=== PATIENT | male | born 1995 | race Hispanic/Latino ===

== ENCOUNTER 2024-10-03 09:30 | Emergency (ER) | payer OTHER, SELFPAY ==
--- NOTE | 2024-10-03 10:56 | RAD REPORT ---
EXAM: Hand Right 3 View HISTORY: deformity and injury to right thumb COMPARISON: None FINDINGS: Comminuted fracture at the thumb proximal phalanx. This is at the mid diaphysis. No intra-articular e xtension. There is up to one half shaft width of radial displacement. IMPRESSION: Comminuted thumb proximal phalanx fracture. No intra-articular extension.
--- NOTE | 2024-10-03 11:22 | EDPHYS ---
Physician Documentation [facility] Name: Sahil Owusu Age: 28 yrs Sex: Male : 1995 Arrival Date: 10/03/2024 Time: 09:30 Bed 10 Private MD: ED Physician Alan Arreaga HPI: 10/03 11:17 This 28 yrs old Male presents to ER via Ambulatory with complaints of Finger rn Injury. 11:17 Onset: The symptoms/episode began/occurred 4 day(s) ago. The patient has not rn experienced similar symptoms in the past. Patient reports was roping, rope got caught on saddle and around his right thumb, rope snapped and pulled his thumb, had obvious deformity, his friend tried to "straighten it out". Patient reports still swollen and deformed so came in today for evaluation.. Historical: - Allergies: 09:46 No Known Allergies; ll1 - PMHx: 09:49 None; ll1 - PSHx: 09:49 None; ll1 - Immunization history:: Adult Immunizations up to date. - Infectious Disease History:: Denies. - Social history:: Smoking status: Reported history of juuling and/or vaping. - Family history:: not pertinent. - Hospitalizations: : No recent hospitalization is reported. ROS: 11:17 Constitutional: Negative for fever, chills, and weight loss, MS/Extremity: Positive for rn right thumb injury and deformity Neuro: Negative for weakness or numbness Exam: 11:17 Constitutional: This is a well developed, well nourished patient who is awake, alert, rn and in no acute distress. MS/ Extremity: Right thumb proximal phalanx with deformity. No open wound. Moderate ecchymosis around thumb and base of thumb. Vital Signs: 09:49 BP 135 / 94; Pulse 60; Resp 16; Temp 97.6; Pulse Ox 99% ; Weight 65.77 kg; Height 5 ft. ll1 9 in. ; Pain 0/10; 11:21 BP 132 / 88; Pulse 66; Resp 17; Pulse Ox 99% ; ll1 09:49 Body Mass Index 21.41 (65.77 kg, 175.26 cm) ll1 09:49 Pain Scale: Adult ll1 MDM: 09:37 Medical Screening Exam initiated rn 11:20 Differential diagnosis: extremity fracture. Data reviewed: vital signs, nurses notes, rn radiologic studies, plain films, and as a result, I will discharge patient. Independent interpretation of the following test(s) in the Emergency Department X-Ray: My interpretation is X-ray right hand shows obvious proximal phalanx of the thumb fracture, comminuted, per my interpretation. Counseling: I had a detailed discussion with the patient and/or guardian regarding the historical points, exam findings, and any diagnostic results supporting the discharge/admit diagnosis, radiology results, the need for outpatient follow up, to return to the emergency department if symptoms worsen or persist or if there are any questions or concerns that arise at home. Special discussion: I discussed with the patient/guardian in detail that at this point there is no indication for admission to the hospital. It is understood, however, that if the symptoms persist or worsen the patient needs to return immediately for re-evaluation. Based on the history and exam findings, there is no indication for further emergent testing or inpatient evaluation. I discussed with the patient/guardian the need to see the hand specialist for further evaluation of the symptoms. ED course: Patient with comminuted thumb fracture. Offered patient formal splint versus premade Velcro thumb spica splint, patient prefers premade Velcro thumb spica splint. Understands needs to follow-up with hand surgery or will have permanent dysfunction of the thumb or problems with the thumb in the future. Traction applied to thumb for reduction while placing in splint by myself.. 10/03 09:55 Order name: XRAY Hand RIGHT 3 View; Complete Time: 10:57 rn Administered Medications: No medications were administered Disposition Summary: 10/03/24 11:21 Discharge Ordered Notes: Location: Home rn Problem: new rn Symptoms: have improved rn Condition: Stable rn Diagnosis - Displaced fracture of proximal phalanx of right thumb rn Followup: rn - With: Private Physician - When: 2 - 3 days - Reason: Recheck today's complaints, Re-evaluation by your physician Discharge Instructions: - Discharge Summary Sheet rn - Cast or Splint Care, Adult rn - Thumb Fracture rn Forms: - Medication Reconciliation Form rn - Antibiotic contemporary or modern dancer - Prescription Opioid Use rn - Patient Portal Instructions rn - Leadership Thank You Letter rn Signatures: Dispatcher [facility] Alan Plunkett MD MD rn Lewis, Lynsay, RN RN ll1 Corrections: (The following items were deleted from the chart) 09:55 09:55 Hand Right 3 View+RAD.RAD.[email or web address] ordered. EDMS EDMS
--- NOTE | 2024-10-03 11:22 | ER ---
Nurse's Notes [facility] Name: Sahil Owusu Age: 28 yrs Sex: Male : 1995 Arrival Date: 10/03/2024 Time: 09:30 Bed 10 Private MD: Diagnosis: Displaced fracture of proximal phalanx of right thumb Presentation: 10/03 09:49 Chief complaint: Patient states: Rope pulled R hand Hardeep night. Pain, swelling, ll1 decreased ROM to R thumb since. Coronavirus screen: Client denies travel out of the [place] in the last 14 days. At this time, the client does not indicate any symptoms associated with coronavirus-19. Ebola Screen: Patient denies travel to an Ebola-affected area in the 21 days before illness onset. Initial Sepsis Screen: Does the patient meet any 2 criteria? No. Patient's initial sepsis screen is negative. Does the patient have a suspected source of infection? No. Patient's initial sepsis screen is negative. Risk Assessment: Do you want to hurt yourself or someone else? Patient reports no desire to harm self or others. Onset of symptoms was September 29, 2024. 09:49 Method Of Arrival: Ambulatory ll1 09:49 Acuity: GAYATRI 4 ll1 Triage Assessment: 09:49 General: Appears uncomfortable, Behavior is calm, cooperative, appropriate for age. ll1 Pain: Complains of pain in right hand Pain currently is 0 out of 10 on a pain scale. Musculoskeletal: Circulation, motion, and sensation intact. Capillary refill < 3 seconds, in right fingers. Range of motion: limited in R thumb Swelling present in R thumb Reports. Injury Description: Bruise rope pulled R arm. Historical: - Allergies: 09:46 No Known Allergies; ll1 - PMHx: 09:49 None; ll1 - PSHx: 09:49 None; ll1 - Immunization history:: Adult Immunizations up to date. - Infectious Disease History:: Denies. - Social history:: Smoking status: Reported history of juuling and/or vaping. - Family history:: not pertinent. - Hospitalizations: : No recent hospitalization is reported. Screenin:11 [facility] ED Fall Risk Assessment (Adult) History of falling in the last 3 months, ll1 including since admission No falls in past 3 months (0 pts) Confusion or Disorientation No (0 pts) Intoxicated or Sedated No (0 pts) Impaired Gait No (0 pts) Mobility Assist Device Used No (0 pt) Altered Elimination No (0 pt) Score/Fall Risk Level 0 - 2 = Low Risk Maintained a safe environment, Hourly rounding (assess needs \T\ fall precautionary measures) done. Abuse screen: Denies threats or abuse. Nutritional screening: No deficits noted. Tuberculosis screening: No symptoms or risk factors identified. Assessment: 11:11 Reassessment: No changes from previously documented assessment. Patient and/or family ll1 updated on plan of care and expected duration. Pain level reassessed. Patient is alert, oriented x 3, equal unlabored respirations, skin warm/dry/pink. Vital Signs: 09:49 BP 135 / 94; Pulse 60; Resp 16; Temp 97.6; Pulse Ox 99% ; Weight 65.77 kg; Height 5 ft. ll1 9 in. ; Pain 0/10; 11:21 BP 132 / 88; Pulse 66; Resp 17; Pulse Ox 99% ; ll1 09:49 Body Mass Index 21.41 (65.77 kg, 175.26 cm) ll1 09:49 Pain Scale: Adult ll1 ED Course: 09:36 Patient arrived in ED. al6 09:37 Alan Arreaga MD is Attending Physician. rn 09:46 Arm band placed on. ll1 09:51 Triage completed. ll1 10:52 XRAY Hand RIGHT 3 View In Process Unspecified. EDMS 11:11 Sugey May, RN is Primary Nurse. ll1 11:11 Patient placed in an exam room, on a stretcher. ll1 11:12 Patient has correct armband on for positive identification. Bed in low position. ll1 Provided Education on: ER procedures and process. Cardiac monitoring not applicable on this patient. 11:12 No provider procedures requiring assistance completed. Patient did not have IV access ll1 during this emergency room visit. Administered Medications: No medications were administered Medication: 11:13 VIS not applicable for this client. ll1 Outcome: 11:12 Condition: stable ll1 11:21 Discharge ordered by . rn 11:21 Discharged to home ambulatory, ll1 11:21 Discharge instructions given to patient, Instructed on discharge instructions, follow up and referral plans. Demonstrated understanding of instructions, follow-up care, 11:35 Patient left the ED. ll1 Signatures: Dispatcher [employer] Alan Plunkett MD MD rn Lewis, Lynsay, RN RN ll1 Almaz Wan6
[2024-10-03 11:46] VITALS: BP 135/94; TEMP 97.6; O2SAT 99
== END 2024-10-03 11:35 | disposition home or self-care (01) ==
LOC: ER 09:30
DX: S62.511A Displaced fracture of proximal phalanx of right thumb, initial encounter for closed fracture (principal)
CPT/HCPCS: 99282